=== PATIENT | female | born 1975 | race Caucasian/White ===

== ENCOUNTER 2018-01-03 10:12 | Emergency (ER) | payer BC ==
[2018-01-03] MEDS ORDERED: Ketorolac 60 MG/2 ML SDV IM ONE (11:00)
--- NOTE | 2018-01-03 11:01 | EDM.PDOC ---
ED HPI GENERAL MEDICAL PROBLEM - General Chief Complaint: Neck Problem Stated Complaint: NECK PAIN Time Seen by Provider: 01/03/18 10:58 Source of Information: Reports: Patient History Limitations: Reports: No Limitations - History of Present Illness INITIAL COMMENTS - FREE TEXT/NARRATIVE: HISTORY AND PHYSICAL: History of present illness: Patient is a 42-year-old female here with complaint of neck pain. She states it' s been going on for about a week and she saw Dr. Yaron Bhagat at [facility] and had an x-ray done which showed bone spurs and scoliosis. She states that she does have a CT scan or MRI scheduled for tomorrow but states that the pain is very severe and hoping to get something for pain relief today. He is currently taking baclofen as well as Advil OTC which does not give her any relief. She states that she has had this neck pain on and off for a year but this last week has been the worst. Have some tingling into her right arm. Review of systems: As per history of present illness and below otherwise all systems reviewed and negative. Past medical history: As per history of present illness and as reviewed below otherwise noncontributory. Surgical history: As per history of present illness and as reviewed below otherwise noncontributory. Social history: No reported history of drug or alcohol abuse. Family history: As per history of present illness and as reviewed below otherwise noncontributory. Physical exam: General: Patient sitting comfortably in no acute distress and nontoxic appearing HEENT: Atraumatic, normocephalic, pupils reactive, negative for conjunctival pallor or scleral icterus, mucous membranes moist, throat clear, neck supple, nontender, trachea midline. No meningeal signs. Lungs: Clear to auscultation, breath sounds equal bilaterally, chest nontender. Heart: S1S2, regular, negative for clicks, rubs, or overt murmur. Abdomen: Soft, nondistended, nontender. Negative for masses or hepatosplenomegaly. Negative for costovertebral tenderness. Pelvis: Stable nontender. Genitourinary: Deferred. Rectal: Deferred. Spine: Pain to palpation of right cervical paraspinals. Patient holds head tilted to the right. Extremities: Atraumatic, negative for cords or calf pain. Neurovascular unremarkable. Neuro: Awake, alert, oriented. Cranial nerves II through XII unremarkable. Cerebellum unremarkable. Motor and sensory unremarkable throughout. Exam nonfocal. Notes: Diagnostics: None Therapeutics: 60mg Toradol IM Prescriptions: Flexeril 10mg #10 Tramadol 50mg #15 Impression: Cervical strain Plan: 1. Take medications as prescribed, do not take with Baclofen. Do not drive on medications as they may make you drowsy 2. Follow up with primary care provider 3. Return to ED as needed as discussed Definitive disposition and diagnosis as appropriate pending reevaluation and review of above. Head Pain Score (Numeric/FACES): 10 - Related Data Allergies Allergy/AdvReac Type Severity Reaction Status Date / Time ibuprofen Allergy Shaking Verified 01/03/18 10:49 Home Meds: Home Meds Aspirin 81 mg PO DAILY 01/03/18 [History] Baclofen 10 mg PO DAILY 01/03/18 [History] Furosemide 20 mg PO DAILY 01/03/18 [History] Lisinopril 40 mg PO DAILY 01/03/18 [History] Omeprazole Magnesium [Prilosec Otc] 20 mg PO DAILY 01/03/18 [History] ED ROS GENERAL - Review of Systems Review Of Systems: ROS reveals no pertinent complaints other than HPI. ED EXAM, UPPER BACK/NECK PAIN - Physical Exam Exam: See Below (see dictation) Course - Vital Signs Last Recorded V/S: Last Vital Signs Temp 36.9 C 01/03/18 10:44 Pulse 59 L 01/03/18 10:44 Resp 18 01/03/18 10:44 BP 126/75 01/03/18 10:44 Pulse Ox 100 01/03/18 10:44 - Orders/Labs/Meds Meds: Medications Discontinued Medications Generic Name Dose Route Start Last Admin Trade Name Freq PRN Reason Stop Dose Admin Ketorolac Tromethamine 60 mg 01/03/18 11:00 Toradol IM 01/03/18 11:01 ONETIME ONE Departure - Departure Time of Disposition: 11:21 Disposition: Home, Self-Care 01 Condition: Good Clinical Impression: Cervical strain - Discharge Information Referrals: PCP,None [Primary Care Provider] - Forms: ED Department Discharge Additional Instructions: The following information is given to patients seen in the emergency department who are being discharged to home. This information is to outline your options for follow-up care. We provide all patients seen in our emergency department with a follow-up referral. The need for follow-up, as well as the timing and circumstances, are variable depending upon the specifics of your emergency department visit. If you don't have a primary care physician on staff, we will provide you with a referral. We always advise you to contact your personal physician following an emergency department visit to inform them of the circumstance of the visit and for follow-up with them and/or the need for any referrals to a consulting specialist. The emergency department will also refer you to a specialist when appropriate. This referral assures that you have the opportunity for follow-up care with a specialist. All of these measure are taken in an effort to provide you with optimal care, which includes your follow-up. Under all circumstances we always encourage you to contact your private physician who remains a resource for coordinating your care. When calling for follow-up care, please make the office aware that this follow-up is from your recent emergency room visit. If for any reason you are refused follow-up, please contact the [facility] Emergency Department at and asked to speak to the emergency department charge nurse. [address] [address] 1. Take medications as prescribed, do not take with Baclofen. Do not drive on medications as they may make you drowsy 2. Follow up with primary care provider 3. Return to ED as needed as discussed
== END 2018-01-03 11:45 | disposition home or self-care (01) ==
LOC: MW.ED 10:12
DX: S16.1XXA Strain of muscle, fascia and tendon at neck level, initial encounter (principal); Z88.6 Allergy status to analgesic agent; Z79.899 Other long term (current) drug therapy; X58.XXXA Exposure to other specified factors, initial encounter
CPT/HCPCS: 96372; 99283; J1885